=== PATIENT | female | born 1990 | race Two or more races ===

== ENCOUNTER 2016-10-15 23:37 | Emergency (ER) | payer OTHER ==
[~2016-10-15] VITALS: Ht 152.4 cm; Wt 63.5 kg
[2016-10-16] MEDS ORDERED: HYDROCODONE/APAP 5-325MG TABLET PO ONE (01:00)
[2016-10-16 01:10] LABS: BASOPHILS # (AUTO) 0.1 K/uL (0.0-8.0); BASOPHILS % (AUTO) 0.9 % (0.0-2.0); EOSINOPHILS # (AUTO) 0.9 K/uL (0.0-0.7); EOSINOPHILS % (AUTO) 8.4 % (0.0-7.0); HEMOGLOBIN 12.7 G/DL (12.0-16.0); LYMPHOCYTES # (AUTO) 2.3 K/UL (0.8-4.8); LYMPHOCYTES % (AUTO) 22.6 % (20.5-51.5); MEAN CORPUSCULAR HEMOGLOBIN 29.4 UUG (27.0-31.0); MEAN CORPUSCULAR HGB CONC 34 g/dL (32.0-37.0); MEAN CORPUSCULAR VOLUME 87.7 FL (81.0-99.0); MONOCYTES # (AUTO) 0.5 K/UL (0.1-1.30); MONOCYTES % (AUTO) 5.3 % (0.0-11.0); NEUTROPHILS # (AUTO) 6.3 K/UL (1.8-8.9); NEUTROPHILS % (AUTO) 62.8 % (38.5-71.5); PLATELET COUNT (AUTO) 319 K/UL (150-450); RED BLOOD CELL COUNT(AUTO) 4.33 MIL/UL (4.2-5.4); WHITE BLOOD COUNT (AUTO) 10.1 K/UL (4.0-11.2)
[2016-10-16 01:14] LABS: CREATININE 1.4 mg/dL (0.6-1.3); POTASSIUM 3.7 mmol/L (3.5-5.1)
[2016-10-16] MEDS ORDERED: HYDROCODONE/APAP 5-325MG TABLET ONE (01:42)
--- NOTE | 2016-10-16 02:05 | NUR ---
dcPatient discharged to home in stable conditon. Written and verbal after care instructions given. Patient verbalizes understanding of instructions.
[2016-10-16 02:07] VITALS: BP 118/70
== END 2016-10-16 02:08 | disposition home or self-care (01) ==
LOC: ER 23:43
DX: S06.0X9A Concussion with loss of consciousness of unspecified duration, initial encounter (principal); Z79.899 Other long term (current) drug therapy; Z88.8 Allergy status to other drugs, medicaments and biological substances; W01.190A Fall on same level from slipping, tripping and stumbling with subsequent striking against furniture, initial encounter; Y93.89 Activity, other specified; Y92.89 Other specified places as the place of occurrence of the external cause; Y99.8 Other external cause status
CPT/HCPCS: 36415; 70450; 80048; 85025; 99285; A4663